=== PATIENT | female | born 2000 | race Caucasian/White ===

== ENCOUNTER 2025-05-05 08:37 | Outpatient (RCR) | payer OTHER, SELFPAY ==
[2025-05-05 09:47] VITALS: BP 106/71; PULSE 93; TEMP 36.4; O2SAT 98
[2025-05-05] MEDS: RHO(D) IMMUNE GLOBULIN 1,500 UNIT SYRINGE 1500 UNIT IM (09:52)
== END 2025-05-07 23:59 | disposition home or self-care (01) ==
LOC: INF 08:37
PROVIDERS: PCP Family Medicine; Visit Provider Midwife
DX: O26.893 Other specified pregnancy related conditions, third trimester (principal); Z67.91 Unspecified blood type, Rh negative; Z3A.00 Weeks of gestation of pregnancy not specified
CPT/HCPCS: 36415; 86850; 86900; 86901; 96372; J2791